=== PATIENT | female | born 2000 | race Hispanic/Latino ===

== ENCOUNTER 2025-03-09 09:25 | Outpatient (CLI) | payer OTHER | END 2025-03-09 09:26 | disposition home or self-care (01) | LOC: SCSULT 09:25 | PROVIDERS: ATTEND Nurse Practitioner | DX: O09.32 Supervision of pregnancy with insufficient antenatal care, second trimester (principal); O32.1XX0 Maternal care for breech presentation, not applicable or unspecified; Z3A.25 25 weeks gestation of pregnancy | CPT/HCPCS: 76805 ==